=== PATIENT | male | born 1965 | race Caucasian/White ===

== ENCOUNTER 2017-05-14 06:35 | Inpatient (IN) | payer OTHER ==
[~2017-05-14] VITALS: Ht 185.4 cm; Wt 104.0 kg
[2017-05-14] VITALS (9 sets, daily range): BP systolic 154–172; BP diastolic 85–94; PULSE 52–96; TEMP 36.6–37; O2SAT 93–98; Ht 185.4 cm; Wt 104.0 kg
[2017-05-14] MEDS ORDERED: ASPI81TA28 PO (06:52)
[2017-05-14] MEDS ORDERED: MULT-506 PO (06:52)
[2017-05-14] MEDS ORDERED: RANITIDINE HCL 150 MG TAB PO ONE (07:00)
[2017-05-14] MEDS ORDERED: VGR50 PO (07:03)
--- NOTE | 2017-05-14 07:03 | EMERGENCY ROOM VISIT NOTE ---
History Report prepared by Liseth: Ambreen Bingham Under the Supervision of: Dr. Tomer Jensen M.D. First contact with patient: 06:49 Chief Complaint: CHEST PAIN Stated Complaint: CHEST PAIN Nursing Triage Summary: Pt reports chest pain that has been intermittent for the past few days. Pt reports it is worse after he eats. Pt reports the pain does not radiate. Denies nausea, vomiting, SOB. Pt states, "It's a lot of pressure on my stomach." History of Present Illness The patient is a 52 year old male who presents to the Emergency Room with complaints of intermittent chest pains for the past two days. He describes his pain as a pressure in the center of his chest. He states that his pain occurs after eating. He notes more gas than usual and increased burping especially after eating. His pain resolves after burping. Drinking soda also helps to alleviate his pain. He denies any current pain. He states that he did not eat breakfast in order to alleviate his symptoms. The patient denies any leg pain. He denies any significant cardiac history. He denies any history of HTN or DM. The patient smokes about a half a pack a day. Source of History: patient Onset: 2 days ago Position: chest Quality: pressure Timing: intermittent Modifying Factors (Worsening): eating Modifying Factors (Relieving): drinking (soda), other (burping) Review of Systems All systems have been listed, reviewed, and are negative other than those previously mentioned. Please see Additional Medical History Sheet. Past Medical & Surgical Medical Problems: (1) Chest pain (2) Elevated troponin I level (3) Laceration Family History Diabetes mellitus Hypertension Social History Smoking Status: Current Every Day Smoker Alcohol Use: occasionally Marital Status: Housing Status: lives with significant other Occupation Status: employed Current/Historical Medications Scheduled Aspirin (Aspirin Ec), 81 MG PO DAILY Multivitamin (Multivitamin), 1 TAB PO DAILY Scheduled PRN Sildenafil Citrate (Viagra), Unknown Dose PO PRN PRN for PRN Allergies Coded Allergies: No Known Allergies (Unverified , 05/14/17) Physical Exam Vital Signs Date Time Temp Pulse Resp B/P (MAP) Pulse Ox O2 Delivery O2 Flow Rate FiO2 05/14/17 08:30 54 16 158/108 05/14/17 07:31 63 16 151/104 05/14/17 07:11 51 20 155/99 96 Room Air 05/14/17 06:53 53 05/14/17 06:46 98 Room Air 05/14/17 06:46 Room Air 05/14/17 06:40 36.6 51 18 164/106 98 Room Air Physical Exam GENERAL: Patient awake, alert, oriented x 3. Patient follows commands. Patient does not appear toxic. Patient is adequately hydrated and well- nourished. SKIN: No erythema, pallor, cyanosis or rash HEENT: Normal head, pupils equal, reactive to light and accommodation, partially opaque left cornea. Oral cavity and posterior pharynx appear normal. Neck: Without adenopathy, no neck vein distention. LUNGS: Clear to auscultation. No wheezes, no rales, no rhonchi. HEART: No murmurs. No gallops. No rubs ABDOMEN: No masses, no rebound, no hepatomegaly or splenomegaly. EXTREMITIES: No signs of trauma. No pedal or pretibial edema. No calf or thigh tenderness. NEUROLOGIC: Cranial nerves II-XII within normal limits. No gross motor sensory function deficits. Medical Decision & Procedures ER Provider Diagnostic Interpretation: Radiology results as stated below per my review and radiologist interpretation: CHEST 2 VIEWS ROUTINE HISTORY: Atypical CHEST PAIN COMPARISON: None. FINDINGS: The lungs are clear. Cardiac silhouette is normal in size. No pleural effusions. No pneumothorax. IMPRESSION: No acute process. Electronically signed by: Chao Mary M.D. 05/14/2017 7:30 AM Dictated Date/Time: 05/14/2017 7:30 AM Laboratory Results 05/14/17 07:00 05/14/17 07:00 Test 05/14/17 07:00 Red Blood Count 4.69 M/uL (4.7-6.1) Mean Corpuscular Volume 99.8 fL (80-100) Mean Corpuscular Hemoglobin 35.4 pg (25-34) Mean Corpuscular Hemoglobin Concent 35.5 g/dl (32-36) RDW Standard Deviation 43.1 fL (36.4-46.3) RDW Coefficient of Variation 11.9 % (11.5-14.5) Mean Platelet Volume 9.0 fL (7.4-10.4) Prothrombin Time 10.0 SECONDS (9.0-12.0) Prothromb Time International Ratio 0.9 (0.9-1.1) Activated Partial Thromboplast Time 26.8 SECONDS (21.0-31.0) Partial Thromboplastin Ratio 1.0 Anion Gap 7.0 mmol/L (3-11) Est Creatinine Clear Calc Drug Dose 126.5 ml/min Estimated GFR () 114.7 Estimated GFR (Non- 99.0 BUN/Creatinine Ratio 17.8 (10-20) Calcium Level 9.3 mg/dl (8.5-10.1) Total Bilirubin 0.6 mg/dl (0.2-1) Aspartate Amino Transf (AST/SGOT) 38 U/L (15-37) Alanine Aminotransferase (ALT/SGPT) 42 U/L (12-78) Alkaline Phosphatase 108 U/L (45-117) Total Protein 6.9 gm/dl (6.4-8.2) Albumin 3.8 gm/dl (3.4-5.0) Globulin 3.1 gm/dl (2.5-4.0) Albumin/Globulin Ratio 1.2 (0.9-2) Lipase 191 U/L (73-393) Laboratory results as stated above per my review. Medications Administered Medications (Trade) Dose Ordered Sig/Aristides Route Start Time Stop Time Status Last Admin Dose Admin Ranitidine HCl (zANTac TAB) 150 mg NOW ONCE PO 05/14/17 07:00 05/14/17 07:01 DC 05/14/17 07:04 150 MG Aspirin (Aspirin Chew) 324 mg NOW STAT PO 05/14/17 07:41 05/14/17 07:43 DC 05/14/17 07:51 324 MG Nitroglycerin (Nitroglycerin 2% Oint) 2 inch STK-MED ONCE .ROUTE 05/14/17 08:35 05/14/17 11:26 DC 05/14/17 08:35 2 INCH ECG Indication: chest pain Rate (beats per minute): 52 Rhythm: sinus bradycardia Findings: ST depression (leads 1 and AVL), ST elevation (in leads 2, 3, AVF, V3 , V4, V5) Comparison ECG Date: no prior available ED Course 0649: Past medical records reviewed. The patient was evaluated in room A10. A complete history and physical examination was performed. 0700: Zantac Tab 150 mg PO 0741: Aspirin 324 mg PO 0810: I reassessed the patient at this time. He is resting comfortably. I discussed the results and treatment plan with the patient and his . I answered all pertaining questions that they had. They expressed understanding and verbalized agreement. 0827: I discussed the patient's case with Dr. Fan of [facility] cardiology. He suggested given the patient Heparin and a nitro patch. He will evaluate the patient in the hospital. 0828: Heparin Sodium/Dextrose 0830: Labetalol HCl 300 mg/Dextrose 300 mls/hr IV, Nitroglycerin 2 inch EXT 0837: I spoke with Dr. Browne. We discussed the patients case. The patient will be [facility] by [facility] for further management. 0843: I spoke with Dr. Fan of cardiology again at this time. The patient will likely go to the cardiac catheterization lab at some point today. 0844: I updated the patient and his and they are in agreement with the treatment plan. Medical Decision I considered multiple diagnoses including myocardial infarction, chest wall pain, pericarditis, myocarditis, aortic emergencies, pulmonary embolism, congestive heart failure, GI causes, and other significant cardiopulmonary disorders. Multiple labs, EKG and imaging were obtained. Please see above. The patient's troponin is elevated. The patient does have slight ST elevations in leads 2,3 aVF and his precordial leads I discussed care with cardiology who also only felt the patient should go to the [facility]. Prior to that the patient was given aspirin. He been given ranitidine with no change. The patient was heparinized here in the ED. In light of the above findings I believe the patient is having an acute inferior wall infarction. Medication Reconcilliation Current Medication List: was personally reviewed by me Blood Pressure Screening Patient's blood pressure: Elevated blood pressure Blood pressure disposition: Referred to PCP Consults Time Called: 08 Consulting Physician: Dr. Fan Returned Call: 08 I discussed the patient's case with Dr. Fan of [facility] cardiology. He suggested given the patient Heparin and a nitro patch. He will evaluate the patient in the hospital. Additional Consults: Time Called: 08 Consulted Physician: Dr. Browne Returned Call: 08 Additional Comments: I spoke with Dr. Browne. We discussed the patients case. The patient will be evaluated by [facility] for further management. Time Called: 0841 Consulted Physician: Dr. Fan Returned Call: 0843 Additional Comments: I spoke with Dr. Fan of cardiology again at this time. The patient will likely go to the cardiac catheterization lab at some point today. Impression Primary Impression: Acute IL, inferior wall Critical Care I have personally spent greater than 35 minutes of critical care time in the direct management of this patient. This includes bedside care, interpretation of diagnostic studies, and testing, discussion with consultants, patient, and family members, and other required patient management activities. This 35 minutes is in excess of all separately billable procedures. Scribe Attestation The scribe's documentation has been prepared under my direction and personally reviewed by me in its entirety. I confirm that the note above accurately reflects all work, treatment, procedures, and medical decision making performed by me. Departure Information Dispostion Being Evaluated By Hospitalist Referrals No Doctor, Assigned (PCP) Patient Instructions My [facility]
[2017-05-14 07:14] LABS: HEMATOCRIT 46.8 % (42-52); MEAN CELL VOLUME 99.8 fL (80-100); MEAN CORPUSCULAR HEMOGLOBIN 35.4 pg (25-34); MEAN CORPUSCULAR HGB CONC 35.5 g/dl (32-36); PLATELET COUNT 261 K/uL (130-400); RED BLOOD COUNT 4.69 M/uL (4.7-6.1); WHITE BLOOD COUNT 7.59 K/uL (4.8-10.8)
--- NOTE | 2017-05-14 07:31 | DIAGNOSTIC IMAGING REPORT ---
CHEST 2 VIEWS ROUTINE HISTORY: Atypical CHEST PAIN COMPARISON: None. FINDINGS: The lungs are clear. Cardiac silhouette is normal in size. No pleural effusions. No pneumothorax. IMPRESSION: No acute process. Electronically signed by: Chao Mary M.D. 05/14/2017 7:30 AM Dictated Date/Time: 05/14/2017 7:30 AM
[2017-05-14 07:33] LABS: BUN/CREATININE RATIO 17.8 (10-20); CALCIUM 9.3 mg/dl (8.5-10.1); CREATININE 0.86 mg/dl (0.60-1.40)
[2017-05-14 07:41] LABS: ALB/GLOB RATIO 1.2 (0.9-2)
[2017-05-14] MEDS ORDERED: ASPIRIN 81 MG CHEW PO STA (07:41)
[2017-05-14] MEDS ORDERED: DEXTROSE 5% IV PRN (08:30)
[2017-05-14] MEDS ORDERED: NITROGLYCERIN OINT 2% 1GM PACKET EXT SCH (08:30)
[2017-05-14] MEDS ORDERED: LABETALOL HCL IV PRN (08:30)
[2017-05-14] MEDS ORDERED: NITROGLYCERIN OINT 2% 1GM PACKET ONE (08:35)
[2017-05-14 08:57] LABS: INR 0.9 (0.9-1.1)
[2017-05-14] MEDS ORDERED: NITROGLYCERIN 0.4 MG SL PER TAB CHARGE SL PRN ×2 (09:00→11:30)
[2017-05-14] MEDS ORDERED: POLYETHYLENE (MIRALAX) 17 GM PACK PO PRN (09:00)
[2017-05-14] MEDS ORDERED: MAGNESIUM HYDROXIDE SUSP 30 ML UDC PO PRN (09:00)
[2017-05-14] MEDS ORDERED: ACETAMINOPHEN 325 MG TAB PO PRN ×2 (09:00→11:30)
[2017-05-14] MEDS ORDERED: ALUMINUM/MAGNESIUM/SIMETH (MAALOX MAX) 30 ML UDC PO PRN (09:00)
[2017-05-14] MEDS ORDERED: ASPIRIN 81 MG ECTAB PO SCH (09:00)
[2017-05-14] MEDS ORDERED: ONDANSETRON INJ 2 MG/ML 2 ML VIAL IV PRN ×2 (09:00→11:30)
[2017-05-14] MEDS ORDERED: SODIUM CHLORIDE 0.9% 1000ML 1,000 ML IV SCH ×2 (09:15→11:30)
[2017-05-14] MEDS ORDERED: HEPARIN SOD 5000 UNIT/0.5 ML CARP ONE (09:21)
[2017-05-14] MEDS ORDERED: HEPARIN 25000 UNIT/500 ML D5W ONE (09:21)
[2017-05-14] MEDS ORDERED: HEPARIN SOD (PORCINE) 1000 UNIT/ML 10 ML VIAL ONE (09:31)
[2017-05-14] MEDS ORDERED: NiCARDipine HCL INJ 2.5 MG/ML 10 ML AMP ONE (09:31)
[2017-05-14] MEDS ORDERED: MIDAZOLAM HCL 1 MG/ML 2ML VIAL ONE (09:32)
[2017-05-14] MEDS ORDERED: FENTANYL CITRATE INJ 50 MCG/1 ML 2 ML VIAL ONE (09:32)
[2017-05-14] MEDS ORDERED: NITROGLYCERIN/D5W 100MCG/ML 20ML SYR ONE (09:33)
--- NOTE | 2017-05-14 09:49 | History and Physical ---
History & Physical Date of Service May 14, 2017. History & Physical Full H&P to be done after cardiac cath: This is a 52 year old male who smokes 1/2PPD but no other medical history presents with epigastric/lower chest pain since May 11. Denies most other symptoms other than this. Presented to the ER due to worsening pain. Upon presentation - found to have some T wave changes on EKG, but no previous to compare it to. CXR was negative. Troponin elevation noted to ~ 2.0. Patient does have a family history, his dad had an HI in his 50s as well. Only takes a baby aspirin at home; no other medications. Noted to have elevated blood pressure on admission; but does not take anything for blood pressure. VITALS: Last Vital Signs Documentation Date Time Temp Pulse Resp B/P (MAP) Pulse Ox O2 Delivery O2 Flow Rate FiO2 05/14/17 09:28 58 16 150/92 97 Room Air 05/14/17 06:40 36.6 GEN: no acute distress HEENT: NC/AT CVS: RRR, +S1, S2 LUNGS: CTA b/l, no wheezing ABD: soft, NT/ND EXT: no edema NEURO: no focal deficits CHEST 2 VIEWS ROUTINE HISTORY: Atypical CHEST PAIN COMPARISON: None. FINDINGS: The lungs are clear. Cardiac silhouette is normal in size. No pleural effusions. No pneumothorax. IMPRESSION: No acute process. EKG Sinus bradycardia Abnormal QRS-T angle, consider primary T wave abnormality Abnormal ECG No previous ECGs available Chest Pain rule out ACS presented with intermittent chest pain/epigastric pain/belching Risk factors: family history of cardiovascular disease, tobacco use troponin elevation on admission to >2 EKG, some T wave abnormalities on inferior leads given full dose aspirin in the ER, IV heparin started appreciate cardiology input echo pending patient to the cardiac clinical lab clerk now observe in tele, trend enzymes fasting lipid panel in AM DVT ppx subq heparin FULL CODE
[2017-05-14] MEDS ORDERED: CLOPIDOGREL BISULFATE 300 MG TAB PO ONE (11:20)
--- NOTE | 2017-05-14 11:26 | Procedure Note ---
Pre-Mod Sedation Assessment General Date of Moderate Sedation: May 14, 2017. Vital Signs: Vital Signs Past 12 Hours Date Time Temp Pulse Resp B/P (MAP) Pulse Ox O2 Delivery O2 Flow Rate FiO2 05/14/17 11:15 Room Air 05/14/17 11:11 51 16 146/87 (106) 100 Room Air 05/14/17 09:28 58 16 150/92 97 Room Air 05/14/17 09:09 96 Room Air 05/14/17 08:30 54 16 158/108 05/14/17 07:31 63 16 151/104 05/14/17 07:11 51 20 155/99 96 Room Air 05/14/17 06:53 53 05/14/17 06:46 98 Room Air 05/14/17 06:46 Room Air 05/14/17 06:40 36.6 51 18 164/106 98 Room Air Review Cardiovascular: regular rate, rhythm, no edema Abdomen: normal bowel sounds, non tender Lungs: chest non-tender, lungs clear Airway Class: II Pre-Sedation Airway Assessment Oral Cavity: WNL Able to Visualize Vocal Cords: No Short Thick Neck: No Hx of Sleep Apnea: No Smoking Status: Current Every Day Smoker Mallampati Classification: Class III ASA Classification: Class III Procedure Planning Contraindications-for Mod Sed: None Yes Notes The planned sedation has been discussed with the patient and consent obtained. I have identified the patient, determined the appropriateness of sedation and have assessed the patient immediately prior to the procedure. All medicine(s) and interventions are by my order.
--- NOTE | 2017-05-14 11:28 | Procedure Note ---
Post-Mod Sedation Assessment General Date of Moderate Sedation May 14, 2017. Vital Signs: Vital Signs Past 12 Hours Date Time Temp Pulse Resp B/P (MAP) Pulse Ox O2 Delivery O2 Flow Rate FiO2 05/14/17 11:15 Room Air 05/14/17 11:11 51 16 146/87 (106) 100 Room Air 05/14/17 09:28 58 16 150/92 97 Room Air 05/14/17 09:09 96 Room Air 05/14/17 08:30 54 16 158/108 05/14/17 07:31 63 16 151/104 05/14/17 07:11 51 20 155/99 96 Room Air 05/14/17 06:53 53 05/14/17 06:46 98 Room Air 05/14/17 06:46 Room Air 05/14/17 06:40 36.6 51 18 164/106 98 Room Air Review - Discharge Criteria Vital Signs Stable: Yes Alert/Oriented/Conversant: Yes Returned to Baseline Mental St: Yes Nausea Absent/Minimal: Yes Pain/Discomfort/Absent/Minimal: Yes Normal/Baseline Respirations: Yes Active Bleeding?: No Pt Received D/C Instructions: N/A Prescriptions Given: None Specific Proced. D/C Criteria Distal Pulses Present (Cardiac: Yes Groin site assessed-Card Cath: N/A Voided Prior To Discharge: N/A Discharged Patients Adult Escort/Transportation: Yes
--- NOTE | 2017-05-14 11:42 | CARDIOLOGY CONSULTATION ---
DATE OF CONSULTATION: 05/14/2017 CONSULTATION REQUESTED BY: Dr. Jensen. REASON FOR CONSULTATION: Possible non-ST segment elevation CA. HISTORY OF PRESENT ILLNESS: Mr. Ramirez is a very pleasant 52-year-old gentleman who presented to [facility] Emergency Department early in the a.m. of 05/14/2017 with a complaint of indigestion. The patient states that for the last 3 days, he has been having significant issues with abdominal discomfort and bloating. He states that this started approximately 3 days ago after eating dinner. Approximately an hour or so later, he developed a significant pressure in his mid epigastric area and into the lower part of his left precordium. He states that he just felt as though he needed to belch. He denied any associated symptoms with it. Specifically, denied any associated diaphoresis, shortness of breath, nausea, palpitations, lightheadedness, dizziness or syncope. The symptoms persisted for the next 3 days and again following the same pattern occurring about an hour after eating, no complaints with exertion. Finally, early in the a.m. of 05/14/2017, again the symptoms occurred, in this time much more severe. He ranked it as a 5/10 and his brought him into the Emergency Department. Initial EKG showed some nonspecific lateral ST-T wave abnormalities with possible nonsignificant inferior ST segment elevations. Initial troponin came back at 1.9. I was contacted by Dr. Jensen. The patient was instructed be started on heparin and nitro paste mainly for blood pressure. I evaluated him at the bedside. An echocardiogram was performed, which was rather unremarkable; however, at that time we decide and take him to the cardiac catheterization lab for further evaluation. PAST SURGICAL HISTORY: Multiple eye surgeries. MEDICAL ILLNESSES: 1. Hypertension, not treated medically. 2. Tobacco abuse. 3. Elevated BMI. 4. Dyslipidemia. FAMILY HISTORY: Remarkable for a father, who suffered a fatal myocardial infarction at age 59. SOCIAL HISTORY: The patient is a lifelong smoker, been smoking since he is 11 years old and states he smokes about half pack a day. Drinks occasional alcohol. Denies any recreational drug use. He is . He has 1 biological child, who is in good health. 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 He does not exercise outside of work. REVIEW OF SYSTEMS: As per HPI. All other review of systems reviewed and negative at this time. ALLERGIES: No known drug allergies. MEDICATIONS AN OUTPATIENT: 1. Aspirin 81 mg daily. 2. Sildenafil p.r.n. PHYSICAL EXAMINATION: VITALS: Temperature 36.6, pulse 58, respiratory rate 12, and blood pressure 150/92. GENERAL: Awake, alert, and oriented x3, in no acute distress. HEENT: Normocephalic and atraumatic. Pupils equal, round, and reactive to light and accommodation. Extraocular muscles intact. Anicteric sclerae. Moist mucous membranes. NECK: No JVD and no bruit. CARDIOVASCULAR: Regular. Positive S4. Normal S1 and S2. No S3. No murmurs or rubs. PULMONARY: Clear to auscultation bilaterally. No rales, rhonchi, or wheezing. ABDOMEN: Bowel sounds x4. Soft. No rebound, guarding, or tenderness. No organomegaly. EXTREMITIES: No clubbing, cyanosis or edema. +2 pedal pulses bilaterally. SKIN: Warm and dry. TEST RESULTS: A 12-lead EKG performed in the Emergency Department independently reviewed shows sinus bradycardia at 52 beats per minute, slight less than 1-mm ST segment elevations in the inferior leads and inverted T waves in the lateral leads. No previous studies available for comparison. Troponin 1.85. Sodium 140, potassium 4, BUN 15, and creatinine 0.9. IMPRESSION: 1. Possible non-ST segment elevation myocardial infarction. 2. Tobacco abuse. 3. Hypertension. 4. Dyslipidemia. RECOMMENDATIONS: It was my pleasure to see Mr. Ramirez in consultation today. Given the patient's constellation of his risk factors for heart disease, his stuttering symptoms, his abnormal EKG and elevated troponin level, I do believe that he would benefit from direct visualization of his coronary anatomy. So, the patient will be taken to the cardiac catheterization lab by Dr. Leavitt and further recommendations to follow. In the meantime, he will be started on IV fluids. He has already received aspirin and again nitro paste is in place.
--- NOTE | 2017-05-14 11:55 | Cardiac Catheterization ---
Procedure Note Procedure Date May 14, 2017. 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 LAD - Moderate caliber, angulated and aneurysmal proximally with diffuse 30% disease from late-proximal to mid segment; aneurysmal mid segment at take-off small 2nd diagonal; distal luminal irregularities as wraps around apex. Circumflex - Large caliber vessel which gives off a large OM2. OM2 mildly ectatic with diffuse 30% disease; Small distal circumflex with luminal irregularities. RCA - Large, dominant vessel, ectatic proximal segment with 99% focal early-mid segment disease with apparent thrombus; downstream from stenosis mid segment is aneurysmal; distal RCA, PDA with luminal irregularities and BHARATHI 2 flow pre- intervention. LVEDP - 13 -- PCI -- Antithrombotic therapy: Heparin, Clopidogrel Procedure: RCA cannulated with JR4 guide BMW wire passed across lesion into distal vessel Early-mid RCA lesion predilated with 2.5 compliant balloon Dilated lesion stented with 4.0 x 18 Xience RACHEL Stent post-dilated with 4.5 noncompliant balloon IC vasodilators administered for spasm Post procedure BHARATHI 3 flow, stent well expanded with minimal residual stenosis and no apparent cardiac complications. Arterial Closure: TR Band Summary: 1. Severe single vessel coronary artery disease - 99% early-mid RCA stenosis with acute thrombus and pre-intervention BHARATHI 2 flow - Proximal to mid LAD and RCA and mid OM2 are ectatic with focal aneurysmal disease. 2. Normal intracardiac filling pressure 3. Successful PCI of mid RCA with single drug-eluting stent (4.0 x 18 Xience RACHEL , post-dilated to 4.5 mm). Recommendations: To PCU for continued monitoring Loaded with Clopidogrel 600 mg Continue dual-antiplatelet therapy with ASA/Clopidogrel for 1 year Continue statin, ASCVD risk factor modification including smoking cessation per Dr. Fan Consult cardiac Rehab Hemodynamics Rest Ao: 130/75/97 Final Ao: 145/73/101 LV: 142/13 Recommendations PCI without planned CABG Specimens None Radiation Exposure (mGy) 3041 Contrast (mls) 125 Visi Fluids (cc crystalloids) 175 Drains None Anesthesia Moderate (10:12 - 11:11) Procedural Complication(s) None Disposition PCU ACC Data Cardiac Status Clinical evaluation leading to the procedure CAD Presntation: Non STEMI Anginal Classification: CCS IV Heart Failure: No, NYHA Class: CCS I Cardiogenic Shock w/in 24Hrs: No Cardiac Arrest w/in 24Hrs: No Imaging studies past 6 months: Yes Stress studies past 6 months: No Coronary Anatomy Dominant: Right Left Main (% Stenosis): Normal LAD (% Stenosis): Proximal (30) OM2 (% Stenosis): Mid (30) RCA (% Stenosis): Mid (99%) Diagnostic Physician's Name: Rob Leavitt MD Status: Urgent Closure Device Percutaneous Entry Location: Radial Closure Device: Radial Band Recommendations: PCI without planned CABG PCI Indication: PCI for high risk Non-STEMI Lesion Segment Name: Mid RCA Culprit Artery: Yes Stenosis Prior to Rx (%): 99 Chronic Total Occlusion: No IVUS: No FFR: No Pre-Procedure BHARATHI Flow: 2 Previously Treated Lesion: No Lesion Complexity: Non-High/Non-C Lesion Length (mm): 12 Thrombus Present: Yes Bifurcation Lesion: No Guidewire Across Lesion: Yes Guidewire: Stenosis Post-Procedure (%): 0 Post-Procedure BHARATHI Flow: 3 Device(s) Deployed: Yes Intraprocedure Events Significant Dissection: No Perforation: No
[2017-05-14] MEDS ORDERED: IV FLUIDS COMPLETED PRN (12:30)
[2017-05-14] MEDS: HEPARIN SOD 5000 UNIT/0.5 ML CARP SQ SCH ×2 (14:00→20:52)
--- NOTE | 2017-05-14 14:17 | History and Physical ---
History & Physical Date & Time of Service: May 14, 2017 at 14:03 Chief Complaint: Chest Pain,Elevated Troponin I Level Primary Care Physician: No Doctor, Assigned History of Present Illness Source: patient, spouse This is a 52 year old male who smokes 1/2PPD but no other medical history presents with epigastric/lower chest pain since May 11. He states that he's had belching and burping episodes with this epigastric pain for weeks now; but the pain was worse starting over the weekend - states that after belching he felt slightly better, but then the pain worsened on the day of arrival and that was the reason to come to the ER. Presented to the ER due to worsening pain. Upon presentation - found to have some T wave changes on EKG, but no previous to compare it to. CXR was negative. Troponin elevation noted to ~ 2.0. Patient does have a family history, his dad had an IN in his 50s as well. Only takes a baby aspirin at home; no other medications. Noted to have elevated blood pressure on admission; but does not take anything for blood pressure. Past Medical/Surgical History Medical Problems: (1) Laceration Status: Resolved Family History Diabetes mellitus Hypertension Social History Smoking Status: Current Every Day Smoker Marital Status: Occupational Status: employed Allergies Coded Allergies: No Known Allergies (Unverified , 05/14/17) Home Medications Scheduled Aspirin (Aspirin Ec), 81 MG PO DAILY Multivitamin (Multivitamin), 1 TAB PO DAILY Scheduled PRN Sildenafil Citrate (Viagra), Unknown Dose PO PRN PRN for PRN Review of Systems Constitutional: No fever, No chills, No weakness Eyes: No worsening of vision Respiratory: No cough, No sputum, No wheezing, No shortness of breath, No dyspnea on exertion, No dyspnea at rest, No hemoptysis Cardiovascular: + chest pain, No orthopnea, No edema, No palpitations Abdomen: + pain, No nausea, No vomiting, No diarrhea, No constipation, No GI bleeding Musculoskeletal: No joint pain, No muscle pain Genitourinary - Male: No hematuria, No dysuria, No urinary frequency, No urinary urgency Psychiatric: No depression symptoms Hematologic / Lymphatic: No abnormal bleeding/bruising Integumentary: No rash Allergic / Immunologic: No environmental allergies, No seasonal allergies Physical Exam Vital Signs Date Time Temp Pulse Resp B/P (MAP) Pulse Ox O2 Delivery O2 Flow Rate FiO2 05/14/17 13:00 37.0 53 16 170/85 (113) 97 Room Air 05/14/17 12:30 36.9 52 16 170/91 (117) 93 Room Air 05/14/17 12:15 48 16 146/80 (102) 98 Room Air 05/14/17 12:00 45 16 142/82 (102) 98 Room Air 05/14/17 11:45 57 16 146/83 (104) 98 Room Air 05/14/17 11:30 48 16 136/72 (93) 98 Room Air 05/14/17 11:25 50 16 148/87 (107) 98 Room Air 05/14/17 11:15 Room Air 05/14/17 11:11 51 16 146/87 (106) 100 Room Air 05/14/17 09:28 58 16 150/92 97 Room Air 05/14/17 09:09 96 Room Air 05/14/17 08:30 54 16 158/108 05/14/17 07:31 63 16 151/104 05/14/17 07:11 51 20 155/99 96 Room Air 05/14/17 06:53 53 05/14/17 06:46 98 Room Air 05/14/17 06:46 Room Air 05/14/17 06:40 36.6 51 18 164/106 98 Room Air General Appearance: no apparent distress Head: normocephalic, atraumatic Eyes: normal inspection ENT: hearing grossly normal Neck: supple Respiratory/Chest: chest non-tender, lungs clear, normal breath sounds, no respiratory distress, no accessory muscle use Cardiovascular: regular rate, rhythm, no edema, no gallop, no JVD, no murmur, normal peripheral pulses Abdomen/GI: normal bowel sounds, non tender, soft Extremities/Musculoskelatal: normal capillary refill, no pedal edema 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, no motor/sensory deficits, alert, normal mood/affect, normal reflexes, oriented x 3 Skin: normal color, warm/dry, no rash Lymphatic: no adenopathy Diagnostics Laboratory Results Results Past 24 Hours Test 05/14/17 07:00 05/14/17 10:32 05/14/17 10:49 Range/Units White Blood Count 7.59 4.8-10.8 K/uL Red Blood Count 4.69 4.7-6.1 M/uL Hemoglobin 16.6 14.0-18.0 g/dL Hematocrit 46.8 42-52 % Mean Corpuscular Volume 99.8 80-100 fL Mean Corpuscular Hemoglobin 35.4 25-34 pg Mean Corpuscular Hemoglobin Concent 35.5 32-36 g/dl RDW Standard Deviation 43.1 36.4-46.3 fL RDW Coefficient of Variation 11.9 11.5-14.5 % Platelet Count 261 130-400 K/uL Mean Platelet Volume 9.0 7.4-10.4 fL Prothrombin Time 10.0 9.0-12.0 SECONDS Prothromb Time International Ratio 0.9 0.9-1.1 Activated Partial Thromboplast Time 26.8 21.0-31.0 SECONDS Partial Thromboplastin Ratio 1.0 Sodium Level 140 136-145 mmol/L Potassium Level 4.0 3.5-5.1 mmol/L Chloride Level 106 98-107 mmol/L Carbon Dioxide Level 27 21-32 mmol/L Anion Gap 7.0 3-11 mmol/L Blood Urea Nitrogen 15 7-18 mg/dl Creatinine 0.86 0.60-1.40 mg/dl Est Creatinine Clear Calc Drug Dose 126.5 ml/min Estimated GFR () 114.7 Estimated GFR (Non- 99.0 BUN/Creatinine Ratio 17.8 10-20 Random Glucose 99 70-99 mg/dl Calcium Level 9.3 8.5-10.1 mg/dl Total Bilirubin 0.6 0.2-1 mg/dl Aspartate Amino Transf (AST/SGOT) 38 15-37 U/L Alanine Aminotransferase (ALT/SGPT) 42 12-78 U/L Alkaline Phosphatase 108 45-117 U/L Total Creatine Kinase 201 39-308 U/L Troponin I 1.850 0-0.045 ng/ml Total Protein 6.9 6.4-8.2 gm/dl Albumin 3.8 3.4-5.0 gm/dl Globulin 3.1 2.5-4.0 gm/dl Albumin/Globulin Ratio 1.2 0.9-2 Lipase 191 73-393 U/L Kaolin Activated Coagulation Time 169 241 94-140 SECONDS Diagnostic Radiology CHEST 2 VIEWS ROUTINE HISTORY: Atypical CHEST PAIN COMPARISON: None. FINDINGS: The lungs are clear. Cardiac silhouette is normal in size. No pleural effusions. No pneumothorax. IMPRESSION: No acute process. EKG Sinus bradycardia T wave abnormality, consider anterolateral ischemia Abnormal ECG When compared with ECG of 14-MAY-2017 06:48, (unconfirmed) T wave inversion more evident in Anterior leads Impression Assessment and Plan This is a 52 year old male with a PMH of tobacco use disorder presents with chest pain, elevated troponin - found to have severe CAD NSTEMI Severe CAD EKG showed mild T wave changes troponin elevated to ~ 2 s/p cardiac cath found to have a 99% RCA occlusion s/p RACHEL started on aspirin, Plavix, high intensity statin no b-aziza due to sinus bradycardia possibly may need to start an ALEXIS-I Tobacco Use Disorder counseled patient on smoking cessation refusing nicotine patch at this time DVT ppx subq heparin FULL CODE Advanced Directives Existing Living Will: No 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 Y/N: Yes Risk Level: Moderate
--- NOTE | 2017-05-14 14:55 | ECHOCARDIOGRAM REPORT ---
*NOTICE TO RECEIVING LIBERTARIAN AGENCY This information is strictly Confidential and protected under [place] law. [place] law prohibits you from making any further disclosure of this information unless further disclosure is expressly permitted by the written consent of the person to whom it pertains or is authorized by law. A general authorization for the release of medical or other information is not sufficient for this purpose. Hospital accepts no responsibility if the information is made available to any other person, INCLUDING THE PATIENT. Interpretation Summary * Name: JASMIN VLEAZCO Study Date: 05/14/2017 08:58 AM BP: 150/92 mmHg * Patient Location: [facility] HR: 58 * : 1965 (M/d/yyyy) Gender: Male Height: 72 in * Age: 52 yrs Ethnicity: [place] Weight: 240 lb * Ordering Physician: Praneeth Fan * Referring Physician: Self, Referred * Performed By: Gayatri Ramirez RDCS * * Reason For Study: CHEST PAIN * BSA: 2.3 m2 * -- Conclusions -- * Normal LV chamber size with moderate concentric LVH. * Normal LV systolic function, EF 60-65%. * No segmental left ventricular wall motion abnormalities are noted. * Grade I diastolic dysfunction. * No significant valvular pathology. Procedure Details * A contrast injection of Definity was performed to improve assessment of LV function. * Contrast was injected into an intravenous site in the left arm. * One vial of Definity ultrasound contrast was diluted in normal saline to a total volume of 10 ml. A total of '1' ml of solution was administered during imaging. * Lot # [id number] of Definity utilized for procedure. * Expiration date MAY 31. * The attending nurse who injected the contrast agent was MARIA LUISA ANDERSON. Left Ventricle * The left ventricle is normal in size. * There is moderate concentric left ventricular hypertrophy. * Ejection Fraction = 60-65%. * Left ventricular systolic function is normal. * No segmental left ventricular wall motion abnormalities are noted. * The left ventricular wall motion is normal. Right Ventricle * The right ventricular cavity size is normal (basal dimension <4.2 cm in right ventricular apical 4-chamber view). * The right ventricular systolic function is normal as assessed by tricuspid annular plane systolic excursion (TAPSE) (normal >1.5 cm). Atria * The left atrial size is normal. * Right atrial size is normal. * No ASD detected; PFO is not assessed. Mitral Valve * The mitral valve is normal in structure and function. Tricuspid Valve * The tricuspid valve is normal in structure and function. Aortic Valve * The aortic valve is normal in structure and function. Pulmonic Valve * The pulmonary valve is not well seen, but the Doppler examination is normal without significant regurgitation or stenosis. Great Vessels * Borderline aortic root dilatation. Pericardium/Pleural * There is no pericardial effusion. Left Ventricular Diastolic Function * Grade I diastolic dysfunction, (abnormal relaxation pattern). MMode 2D Measurements and Calculations IVSd 1.8 cm IVSs 2.1 cm LVIDd 4.4 cm LVIDs 3.1 cm LVPWd 1.8 cm LVPWs 2.6 cm IVS/LVPW 1.0 FS 30.0 % EDV(Teich) 90.0 ml ESV(Teich) 38.4 ml EF(Teich) 57.4 % EDV(cubed) 88.1 ml ESV(cubed) 30.2 ml EF(cubed) 65.7 % % IVS thick 16.2 % % LVPW thick 43.5 % LV mass(C)d 367.2 grams LV mass(C)dI 159.6 grams/m\S\2 LV mass(C)s 375.7 grams LV mass(C)sI 163.3 grams/m\S\2 SV(Teich) 51.6 ml SI(Teich) 22.4 ml/m\S\2 SV(cubed) 57.8 ml SI(cubed) 25.1 ml/m\S\2 Ao root diam 4.0 cm Ao root area 12.3 cm\S\2 LA dimension 3.7 cm LA/Ao 0.93 LVAd ap4 38.1 cm\S\2 LVLd ap4 9.2 cm EDV(MOD-sp4) 130.6 ml EDV(sp4-el) 134.3 ml LVAs ap4 22.6 cm\S\2 LVLs ap4 7.9 cm ESV(MOD-sp4) 56.1 ml ESV(sp4-el) 55.2 ml EF(MOD-sp4) 57.0 % EF(sp4-el) 58.9 % LVAd ap2 37.8 cm\S\2 LVLd ap2 8.7 cm EDV(MOD-sp2) 130.7 ml EDV(sp2-el) 139.1 ml LVAs ap2 21.0 cm\S\2 LVLs ap2 7.4 cm ESV(MOD-sp2) 51.7 ml ESV(sp2-el) 50.7 ml EF(MOD-sp2) 60.4 % EF(sp2-el) 63.6 % LVLd %diff -5.23 % EDV(MOD-bp) 132.7 ml LVLs %diff -6.55 % ESV(MOD-bp) 55.7 ml EF(MOD-bp) 58.0 % SV(MOD-sp4) 74.5 ml SI(MOD-sp4) 32.4 ml/m\S\2 SV(MOD-sp2) 79.0 ml SI(MOD-sp2) 34.3 ml/m\S\2 SV(MOD-bp) 77.0 ml SI(MOD-bp) 33.5 ml/m\S\2 SV(sp4-el) 79.1 ml SI(sp4-el) 34.4 ml/m\S\2 SV(sp2-el) 88.4 ml SI(sp2-el) 38.4 ml/m\S\2 Doppler Measurements and Calculations MV E max pasha 48.2 cm/sec MV A max pasha 56.6 cm/sec MV E/A 0.85 MV dec time 0.27 sec Ao V2 max 110.4 cm/sec Ao max PG 4.9 mmHg Ao max PG (full) 1.5 mmHg LV V1 max PG 3.4 mmHg LV V1 max 91.7 cm/sec TR max pasha 203.5 cm/sec
[2017-05-14] MEDS ORDERED: AMLODIPINE BESYLATE 5 MG TAB PO ONE (15:00)
[2017-05-14 15:46] LABS: CKMB/CK RATIO 6.1 (0-3.0)
[2017-05-15] VITALS (7 sets, daily range): BP systolic 122–163; BP diastolic 78–99; PULSE 56–67; TEMP 36.7–37; O2SAT 95–98
[2017-05-15] MEDS: HEPARIN SOD 5000 UNIT/0.5 ML CARP SQ SCH ×3 (06:00→21:10)
[2017-05-15 07:28] LABS: BASO % 0.3 %; BASO ABS # 0.02 K/uL (0-0.2); COMPLETE YES; EOS % 2.6 %; HEMATOCRIT 46.9 % (42-52); IG% 0.1 %; LYMPH % 22.9 %; LYMPH ABS # 1.59 K/uL (1.2-3.4); MEAN CELL VOLUME 100.2 fL (80-100); MEAN CORPUSCULAR HEMOGLOBIN 35.5 pg (25-34); MEAN CORPUSCULAR HGB CONC 35.4 g/dl (32-36); MEAN PLATELET VOLUME 8.9 fL (7.4-10.4); MONO % 10.1 %; PLATELET COUNT 254 K/uL (130-400); RED BLOOD COUNT 4.68 M/uL (4.7-6.1); WHITE BLOOD COUNT 6.95 K/uL (4.8-10.8)
[2017-05-15] MEDS: AMLODIPINE BESYLATE 5 MG TAB PO SCH (07:35)
[2017-05-15] MEDS: CLOPIDOGREL BISULFATE 75 MG TAB PO SCH (07:36)
[2017-05-15] MEDS: ASPIRIN 81 MG ECTAB PO SCH (07:36)
[2017-05-15] MEDS: NICOTINE 14 MG/24 HR TDSY TD SCH (07:36)
[2017-05-15] MEDS: ATORVASTATIN 40 MG TAB PO SCH (07:36)
[2017-05-15 07:38] LABS: PARTIAL THROMBOPLASTIN RATIO 1.1
[2017-05-15 08:04] LABS: BUN/CREATININE RATIO 15.8 (10-20); CALCIUM 9.4 mg/dl (8.5-10.1); CREATININE 0.76 mg/dl (0.60-1.40)
[2017-05-15 08:07] LABS: CHOLESTEROL/HDL RATIO 6.3
[2017-05-15] MEDS ORDERED: AMLODIPINE BESYLATE 5 MG TAB PO ONE (08:07)
--- NOTE | 2017-05-15 11:55 | Cardiology Follow-Up ---
Subjective Subjective Date of Service: May 15, 2017. Pt evaluation today including: conversation w/ patient, physical exam, chart review, lab review, review of studies, review of inpatient medication list Additional Details: Pt seen and examined, oob in chair. No complaints overnight. No recurrence of his presenting symptoms of "indigestion". BP has been high and uptitrating amlodipine, tolerating well. Denies cp, sob, palpitations, lightheadedness or dizziness. Tele reviewed: sinus rhythm without arrhythmia or significant ectopy. Problem List Medical Problems: (1) Acute [place], inferior wall Status: Acute (2) NSTEMI (non-ST elevated myocardial infarction) Status: Acute Review of Systems Respiratory: No see HPI, No cough, No sputum, No wheezing, No shortness of breath, No dyspnea on exertion, No dyspnea at rest, No hemoptysis, No problem reported Cardiac: No see HPI, No chest pain, No orthopnea, No PND, No edema, No claudication, No palpitations, No problem reported Objective Vital Signs Last Vital Signs Documentation Date Time Temp Pulse Resp B/P (MAP) Pulse Ox O2 Delivery O2 Flow Rate FiO2 05/15/17 11:15 Room Air 05/15/17 11:14 36.8 59 18 144/90 (108) 95 Physical Exam: General Appearance: WD/WN, no apparent distress Eyes: bilateral eyes normal inspection, bilateral eyes PERRL, bilateral eyes EOMI ENT: normal ENT inspection, hearing grossly normal, pharynx normal Neck: supple, no adenopathy, thyroid normal, no JVD, no carotid bruits, trachea midline Respiratory/Chest: chest non-tender, lungs clear, normal breath sounds, no respiratory distress, no accessory muscle use Cardiovascular: regular rate, rhythm, no edema, no JVD, no murmur, + gallop/S4 Abdomen: normal bowel sounds, non tender, soft, no organomegaly, no pulsatile mass Extremities: normal inspection, no pedal edema, no calf tenderness 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 NSTEMI 99% occluded proximal RCA s/p successful PCI with RACHEL tolerating asa and plavix well no recurrence of symptoms plavix for 1 year asa lifelong smoking cessation again stressed to the patient 2. HTN significantly elevated since admission amlodipine 10mg today with good improvement may also add jonelle-i for further BP control but no secondary indication given preserved LV systolic function and nondiabetic 3. dyslipidemia cont atorvastatin 4. tobacco abuse cessation counseling provided will also work with Dr. Browne on nicotine replacement cont to monitor on tele for 48 hours after event
--- NOTE | 2017-05-15 12:50 | Progress Note ---
Subjective Date of Service: May 15, 2017. Subjective Pt evaluation today including: conversation w/ patient, physical exam, lab review, review of studies, review of inpatient medication list Saw/examined the patient in room 242 Patient is doing fine after stent placement no shortness of breath/chest pain Problem List Medical Problems: (1) Acute [place], inferior wall Status: Acute (2) NSTEMI (non-ST elevated myocardial infarction) Status: Acute Review of Systems Constitutional: No fever, No chills Respiratory: No cough, No sputum, No shortness of breath Cardiac: No chest pain, No edema, No palpitations Abdomen: No pain, No nausea, No vomiting, No diarrhea Heme: No abnormal bleeding/bruising Medications Current Inpatient Medications Medications (Trade) Dose Ordered Sig/Aristides Route Start Time Stop Time Status Last Admin Dose Admin Heparin Sodium (Porcine) (Heparin Sq 5000 Unit/0.5ml) 5,000 unit Q8 SQ 05/14/17 14:00 06/13/17 13:59 05/14/17 20:52 5,000 UNIT Acetaminophen (Tylenol Tab) 650 mg Q4H PRN PO 05/14/17 09:00 06/13/17 08:59 Al Hydrox/Mg Hydrox/Simethicone (Maalox Max Susp) 15 ml Q4H PRN PO 05/14/17 09:00 06/13/17 08:59 Magnesium Hydroxide (Milk Of Magnesia Susp) 30 ml Q12H PRN PO 05/14/17 09:00 06/13/17 08:59 Ondansetron HCl (Zofran Inj) 4 mg Q6H PRN IV 05/14/17 09:00 06/13/17 08:59 Nitroglycerin (Nitrostat Tab) 0.4 mg UD PRN SL 05/14/17 09:00 06/13/17 08:59 Polyethylene (Miralax Powder Packet) 17 gm DAILY PRN PO 05/14/17 09:00 06/13/17 08:59 Aspirin (Ecotrin Tab) 81 mg QAM PO 05/15/17 09:00 06/14/17 08:59 05/15/17 07:36 81 MG Clopidogrel Bisulfate (plAVix TAB) 75 mg QAM PO 05/15/17 09:00 06/14/17 08:59 05/15/17 07:36 75 MG Atorvastatin Calcium (Lipitor Tab) 80 mg QAM PO 05/15/17 09:00 06/14/17 08:59 05/15/17 07:36 80 MG Miscellaneous (Iv Fluids Completed) 1 ea PRN PRN N/A 05/14/17 12:30 05/14/18 12:29 Amlodipine Besylate (Norvasc Tab) 5 mg QAM PO 05/15/17 09:00 06/14/17 08:59 05/15/17 07:35 5 MG Nicotine (Nicoderm Cq 14MG Patch) 1 patch QAM TD 05/15/17 09:00 06/14/17 08:59 05/15/17 07:36 1 PATCH Miscellaneous (Remove Nicoderm Patch) 1 ea HS N/A 05/15/17 21:00 06/14/17 20:59 Objective Vital Signs Date Time Temp Pulse Resp B/P (MAP) Pulse Ox O2 Delivery O2 Flow Rate FiO2 05/15/17 11:15 Room Air 05/15/17 11:14 36.8 59 18 144/90 (108) 95 Room Air 05/15/17 08:00 Room Air 05/15/17 07:28 36.7 59 18 163/99 (120) 98 Room Air 05/15/17 04:00 36.9 57 19 150/95 (113) 98 Room Air 05/15/17 04:00 Room Air 05/15/17 00:00 37.0 56 17 144/93 (110) 96 Room Air 05/14/17 23:59 Room Air 05/14/17 20:00 Room Air 05/14/17 19:27 36.7 96 20 154/92 (112) 96 Room Air 05/14/17 17:42 36.6 57 22 172/94 (120) 97 Room Air 05/14/17 16:00 Room Air 05/14/17 15:14 36.7 54 22 158/92 (114) 98 Room Air 05/14/17 14:00 37.0 54 16 168/92 (117) 98 Room Air 05/14/17 13:30 36.9 52 16 170/94 (119) 98 Room Air 05/14/17 13:00 37.0 53 16 170/85 (113) 97 Room Air Physical Exam General Appearance: no apparent distress Respiratory/Chest: chest non-tender, lungs clear, normal breath sounds, no respiratory distress, no accessory muscle use Cardiovascular: regular rate, rhythm, no edema, no murmur Abdomen: normal bowel sounds, non tender, soft Extremities: normal inspection, no pedal edema Neurologic/Psychiatric: no motor/sensory deficits, alert, normal mood/affect Laboratory Results Last 24 Hours Test 05/14/17 14:36 05/14/17 22:59 05/15/17 06:57 Total Creatine Kinase 196 U/L 216 U/L Creatine Kinase MB 11.9 ng/ml 15.1 ng/ml Creatine Kinase MB Ratio 6.1 7.0 Troponin I 2.320 ng/ml 3.940 ng/ml White Blood Count 6.95 K/uL Red Blood Count 4.68 M/uL Hemoglobin 16.6 g/dL Hematocrit 46.9 % Mean Corpuscular Volume 100.2 fL Mean Corpuscular Hemoglobin 35.5 pg Mean Corpuscular Hemoglobin Concent 35.4 g/dl Platelet Count 254 K/uL Mean Platelet Volume 8.9 fL Neutrophils (%) (Auto) 64.0 % Lymphocytes (%) (Auto) 22.9 % Monocytes (%) (Auto) 10.1 % Eosinophils (%) (Auto) 2.6 % Basophils (%) (Auto) 0.3 % Neutrophils # (Auto) 4.45 K/uL Lymphocytes # (Auto) 1.59 K/uL Monocytes # (Auto) 0.70 K/uL Eosinophils # (Auto) 0.18 K/uL Basophils # (Auto) 0.02 K/uL RDW Standard Deviation 43.5 fL RDW Coefficient of Variation 11.9 % Immature Granulocyte % (Auto) 0.1 % Immature Granulocyte # (Auto) 0.01 K/uL Activated Partial Thromboplast Time 27.5 SECONDS Partial Thromboplastin Ratio 1.1 Sodium Level 141 mmol/L Potassium Level 4.0 mmol/L Chloride Level 108 mmol/L Carbon Dioxide Level 28 mmol/L Anion Gap 5.0 mmol/L Blood Urea Nitrogen 12 mg/dl Creatinine 0.76 mg/dl Est Creatinine Clear Calc Drug Dose 143.2 ml/min Estimated GFR () 120.7 Estimated GFR (Non- 104.2 BUN/Creatinine Ratio 15.8 Random Glucose 92 mg/dl Calcium Level 9.4 mg/dl Triglycerides Level 287 mg/dl Cholesterol Level 209 mg/dl HDL Cholesterol 33 mg/dl LDL Cholesterol, Calculated 119 mg/dl VLDL Cholesterol, Calculated 57 mg/dl Cholesterol/HDL Ratio 6.3 Assessment and Plan This is a 52 year old male with a PMH of tobacco use disorder presents with chest pain, elevated troponin - found to have severe CAD NSTEMI Severe CAD 05/15 s/p stent on 05/14 to the RCA aspirin, Plavix, statin amlodipine added due to elevated blood pressure 05/14 EKG showed mild T wave changes troponin elevated to ~ 2 s/p cardiac cath found to have a 99% RCA occlusion s/p RACHEL started on aspirin, Plavix, high intensity statin no b-aziza due to sinus bradycardia possibly may need to start an ALEXIS-I HTN added Norvasc can add ALEXIS-I if BP remains high Tobacco Use Disorder counseled patient on smoking cessation nicotine patch added as per patient preference will need nicotine 14mg patch on discharge DVT ppx subq heparin FULL CODE
[2017-05-16 03:35] VITALS: BP 126/82; PULSE 55; TEMP 36.8; O2SAT 97
[2017-05-16] MEDS: HEPARIN SOD 5000 UNIT/0.5 ML CARP SQ SCH (06:12)
[2017-05-16 07:00] LABS: BASO % 0.5 %; BASO ABS # 0.03 K/uL (0-0.2); COMPLETE YES; EOS % 2.9 %; HEMATOCRIT 48.4 % (42-52); IG% 0.2 %; LYMPH % 25.7 %; LYMPH ABS # 1.62 K/uL (1.2-3.4); MEAN CELL VOLUME 99.8 fL (80-100); MEAN CORPUSCULAR HEMOGLOBIN 34.4 pg (25-34); MEAN CORPUSCULAR HGB CONC 34.5 g/dl (32-36); MEAN PLATELET VOLUME 8.9 fL (7.4-10.4); NEUT % 58.7 %; PLATELET COUNT 254 K/uL (130-400); RED BLOOD COUNT 4.85 M/uL (4.7-6.1); WHITE BLOOD COUNT 6.31 K/uL (4.8-10.8)
[2017-05-16 07:07] LABS: PARTIAL THROMBOPLASTIN RATIO 1.1
[2017-05-16] MEDS: AMLODIPINE BESYLATE 5 MG TAB PO SCH (07:36)
[2017-05-16] MEDS: CLOPIDOGREL BISULFATE 75 MG TAB PO SCH (07:36)
[2017-05-16] MEDS: ASPIRIN 81 MG ECTAB PO SCH (07:36)
[2017-05-16] MEDS: ATORVASTATIN 40 MG TAB PO SCH (07:37)
[2017-05-16] MEDS: NICOTINE 14 MG/24 HR TDSY TD SCH (07:37)
[2017-05-16 07:47] VITALS: BP 145/91; PULSE 58; TEMP 36.4; O2SAT 96
[2017-05-16 10:37] VITALS: BP 141/91; PULSE 58; TEMP 36.4; O2SAT 96
[2017-05-16] MEDS ORDERED: LPT40 PO (13:07)
[2017-05-16] MEDS ORDERED: NRV5 PO (13:07)
[2017-05-16] MEDS ORDERED: PLV75 PO (13:07)
--- NOTE | 2017-05-16 13:11 | Discharge Instructions ---
Discharge Instructions Date of Service May 16, 2017. Admission Reason for Admission: Chest Pain,Elevated Troponin I Level Discharge Discharge Diagnosis / Problem: NON ST ELEVATED MA /CARDIAC STENT PLACEMENT IN RCA Discharge Goals Goal(s): Decrease discomfort, Improve disease control, Diagnostic testing, Therapeutic intervention Activity Recommendations Activity Limitations: resume your previous activity Shower/Bathe: no limitations HOSPITAL FOLLOWUP WITH FAMILY PHYSICIAN IN A WEEK PLEASE CALL [phone] TO SCHEDULE APPOINTMENT THROUGH [facility] NEED TO FOLLOW UP WITH CARDIOLOGY IN 1 MONTH , DR LORA OFFICE WILL CALL WITH APPOINTMENT . Instructions / Follow-Up Instructions / Follow-Up IT IS VERY IMPORTANT FOR YOU TO QUIT SMOKING TO PREVENT FUTURE HEART ATTACK Home Care: * Take your medications exactly as directed. Don't skip doses. * Remember that recovery after a heart attack takes time. Plan to rest for at lease 4-8 weeks while you recover. Then return to normal activity when your doctor says it's okay. * Ask your doctor about joining a heart rehabilitation program. * Tell your doctor if you are feeling depressed. Feelings of sadness are common after a heart attack, but it is important that you speak to someone if you are feeling overwhelmed by these feelings. * If you are having chest pain, call 911 for an ambulance. Do NOT drive yourself to the hospital. * Ask your family members to learn CPR. * Learn to take your own blood pressure and pulse. Keep a record of your results. Ask your doctor when you should seek emergency medical attention. He or she will tell you which blood pressure reading is dangerous. Lifestyle Changes: * Maintain a healthy weight. Get help to lose any extra pounds. * Cut back on salt. * Limit canned, dried, packaged, and fast foods. * Don't add salt to your food. * Season foods with herbs instead of salt when you cook. * Break the smoking habit. Enroll in a stop-smoking program to improve your chances of success. * Limit fatty foods. * Ask your doctor about having your lipid levels checked regularly. * Build up your activity according to your doctor's recommendation. * Ask your doctor when it's okay to resume sexual activity. * Tell your doctor about any erectile dysfunction (ED) medication you are taking. Some ED medications are not safe if you take certain heart medications. * Try to manage stress. Follow Up: It is important for you to keep your follow up appointments with your medical provider. Current Hospital Diet Patient's current hospital diet: AHA Diet (Heart Healthy) Discharge Diet Recommended Diet: AHA Diet (Heart Healthy) Pending Studies Studies pending at discharge: no Laboratory Results Lipid Panel Test 05/15/17 06:57 Range/Units Triglycerides Level 287 H 0-150 mg/dl Cholesterol Level 209 H 0-200 mg/dl HDL Cholesterol 33 mg/dl Cholesterol/HDL Ratio 6.3 LDL Cholesterol, Calculated 119 mg/dl Work Instructions Return To Work: 3 days Additional Instructions: MAY RETURN BACK TO WORK ON Saturday05/20/17 WITH RESTRICTED DUTY Medical Emergencies . Who to Call and When: Medical Emergencies: If at any time you feel your situation is an emergency, please call 911 immediately. Call 911 immediately or go to your nearest Emergency Room if you experience any of the following: Warning Signs and Symptoms of a Heart Attack * Chest pain that is not relieved by medication * Shortness of breath . Non-Emergent Contact Non-Emergency issues call your: Primary Care Provider . . "Provider Documentation" section prepared by Stephanie Garcia. . AMI Core Measures Reason no ASA as I/P: Treatment provided - N/A Reason no ASA at D/C: Treatment provided - N/A Reason no statin as I/P: Treatment provided - N/A Reason no statin at D/C: Treatment provided - N/A VTE Core Measure Inpt VTE Proph given/why not?: Unfractionated heparin SQ
--- NOTE | 2017-05-16 13:12 | Cardiology Follow-Up ---
Subjective Subjective Date of Service: May 16, 2017. Pt evaluation today including: conversation w/ patient, conversation w/ family , physical exam, chart review, lab review, review of studies, review of inpatient medication list Additional Details: Pt seen and examined, states that he feels fine, anxious for discharge. Denies cp, sob, palpitations, lightheadedness or dizziness. tele reviewed: sinus rhythm without arrhythmia or significant ectopy. Problem List Medical Problems: (1) Acute HI, inferior wall Status: Acute (2) NSTEMI (non-ST elevated myocardial infarction) Status: Acute Review of Systems Constitutional: No fever, No chills Respiratory: No cough, No sputum, No shortness of breath Cardiac: No chest pain, No edema, No palpitations Abdomen: No pain, No nausea, No vomiting, No diarrhea Heme: No abnormal bleeding/bruising Objective Vital Signs Last Vital Signs Documentation Date Time Temp Pulse Resp B/P (MAP) Pulse Ox O2 Delivery O2 Flow Rate FiO2 05/16/17 11:28 Room Air 05/16/17 10:37 36.4 58 18 96 05/16/17 07:47 145/91 (109) Physical Exam: General Appearance: WD/WN, no apparent distress, + obese Eyes: bilateral eyes normal inspection, bilateral eyes PERRL, bilateral eyes EOMI ENT: normal ENT inspection, hearing grossly normal, pharynx normal Neck: supple, no adenopathy, thyroid normal, no JVD, no carotid bruits, trachea midline Respiratory/Chest: chest non-tender, lungs clear, normal breath sounds, no respiratory distress, no accessory muscle use Cardiovascular: regular rate, rhythm, no edema, no murmur Abdomen: normal bowel sounds, non tender, soft Extremities: normal inspection, no pedal edema Neurologic/Psychiatric: no motor/sensory deficits, alert, normal mood/affect Skin: normal color, warm/dry, no rash Lymphatic: no adenopathy Assessment and Plan 1. NSTEMI 99% occluded proximal RCA s/p successful PCI with RACHEL tolerating asa and plavix well no recurrence of symptoms plavix for 1 year asa lifelong smoking cessation again stressed to the patient 2. HTN now controlled would d/c to home with amlodipine 5mg daily 3. dyslipidemia cont atorvastatin 4. tobacco abuse cessation counseling provided will also work with Dr. 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 Would be acceptable to return to work on Sunday 05/20 with restricted duty.
--- NOTE | 2017-05-16 13:16 | Progress Note ---
Internal Med Progress Note Date of Service: May 16, 2017. Provider Documentation: SUBJECTIVE: no complain of chest pain or SOB feel fine denies of RIDLEY evaluated by cardiology this Am stable to be discharged home OBJECTIVE: Vital Signs-as noted below Exam: General-no sign of distress Eyes-sclera non icteric ENT-NAD Neck-no JVD Lungs-CTA ,no wheeze or rales Heart-regular S1/S2 Abdomen-soft, non tender , no JVD , no lower ext edema Extremities-no rash or deformity Neuro-AAO x3, no focal neurological deficit Lab data as noted below. ASSESSMENT & PLAN: This is a 52 year old male with a PMH of tobacco use disorder presents with chest pain, elevated troponin - found to have severe CAD NSTEMI Severe CAD presented with chest pain EKG showed mild T wave changes troponin elevated to ~ 2 s/p cardiac cath on 05/14/17 found to have a 99% RCA occlusion s/p RACHEL stent placement recovering well no complain of chest pain or SOB pt is counselled for smoking cessation cont aspirin 81 mg for life long , Plavix( FOR 1 YEAR ) , pt is counselled importance of continuing dual antiplatelet therapy uninterrupted for 1 year to prevent stent stenosis High intensity statin Atorvastatin 80 mg daily ( goal LDL < 70 ) amlodipine added due to elevated blood pressure no b-aziza due to sinus bradycardia HTN added Norvasc may need ACEI in future if BP remains elevated not indicated at present due normal LV pressures noted in Cardiac cath Tobacco Use Disorder counseled patient on smoking cessation nicotine patch added as per patient preference nicotine 14mg patch on discharge DVT ppx subq heparin FULL CODE DISPOSITION discharge home today pt is asked to establish care with family physician -will call [facility] to schedule needs Cardiology follow up in 1 month Vital Signs: Date Time Temp Pulse Resp B/P (MAP) Pulse Ox O2 Delivery O2 Flow Rate FiO2 05/16/17 11:28 Room Air 05/16/17 10:37 36.4 58 18 96 Room Air 05/16/17 08:00 Room Air 05/16/17 07:47 36.4 58 18 145/91 (109) 96 Room Air 05/16/17 04:00 Room Air 05/16/17 03:35 36.8 55 18 126/82 (97) 97 Room Air 05/16/17 00:01 Room Air 05/15/17 23:25 36.7 67 18 123/80 (94) 97 Room Air 05/15/17 20:00 Room Air 05/15/17 19:42 36.8 60 18 144/78 (100) 96 Room Air 05/15/17 15:35 37.0 56 20 122/82 (95) 96 Room Air 05/15/17 14:53 Room Air Lab Results: Results Past 24 Hours Test 05/16/17 06:35 Range/Units White Blood Count 6.31 4.8-10.8 K/uL Red Blood Count 4.85 4.7-6.1 M/uL Hemoglobin 16.7 14.0-18.0 g/dL Hematocrit 48.4 42-52 % Mean Corpuscular Volume 99.8 80-100 fL Mean Corpuscular Hemoglobin 34.4 25-34 pg Mean Corpuscular Hemoglobin Concent 34.5 32-36 g/dl Platelet Count 254 130-400 K/uL Mean Platelet Volume 8.9 7.4-10.4 fL Neutrophils (%) (Auto) 58.7 % Lymphocytes (%) (Auto) 25.7 % Monocytes (%) (Auto) 12.0 % Eosinophils (%) (Auto) 2.9 % Basophils (%) (Auto) 0.5 % Neutrophils # (Auto) 3.71 1.4-6.5 K/uL Lymphocytes # (Auto) 1.62 1.2-3.4 K/uL Monocytes # (Auto) 0.76 0.11-0.59 K/uL Eosinophils # (Auto) 0.18 0-0.5 K/uL Basophils # (Auto) 0.03 0-0.2 K/uL RDW Standard Deviation 43.1 36.4-46.3 fL RDW Coefficient of Variation 11.8 11.5-14.5 % Immature Granulocyte % (Auto) 0.2 % Immature Granulocyte # (Auto) 0.01 0.00-0.02 K/uL Activated Partial Thromboplast Time 28.3 21.0-31.0 SECONDS Partial Thromboplastin Ratio 1.1
--- NOTE | 2017-05-16 13:27 | Discharge Summary ---
Discharge Summary Date of Service May 16, 2017. Discharge Summary Admission Date: May 14, 2017 at 13:48 Discharge Date: May 16, 2017 Discharge Disposition: Home Principal Diagnosis: NON ST ELEVATED MA /CARDIAC STENT PLACEMENT IN RCA Procedures: CARDIAC CATH WITH SUCCESSFUL PTCA WITH RACHEL AT RCA ON 05/14/17 Summary: 1. Severe single vessel coronary artery disease - 99% early-mid RCA stenosis with acute thrombus and pre-intervention BHARATHI 2 flow - Proximal to mid LAD and RCA and mid OM2 are ectatic with focal aneurysmal disease. 2. Normal intracardiac filling pressure 3. Successful PCI of mid RCA with single drug-eluting stent (4.0 x 18 Xience RACHEL , post-dilated to 4.5 mm). RESTING ECHO : * Normal LV chamber size with moderate concentric LVH. * Normal LV systolic function, EF 60-65%. * No segmental left ventricular wall motion abnormalities are noted. * Grade I diastolic dysfunction. * No significant valvular pathology. Consultations: [facility] INTERVENTIONAL CARDIOLOGY DR VERAS Medication Reconciliation New Medications: Amlodipine Besylate (Amlodipine Besylate) 5 Mg Tab 5 MG PO QAM for 30 Days, #30 TAB 3 Refills Atorvastatin (Atorvastatin Calcium) 40 Mg Tab 80 MG PO QAM for 30 Days, #60 TAB 3 Refills Clopidogrel Bisulfate (Clopidogrel) 75 Mg Tab 75 MG PO QAM for 30 Days, #30 TAB 3 Refills Continued Medications: Aspirin (Aspirin Ec) 81 Mg Tab 81 MG PO DAILY Multivitamin (Multivitamin) Tab 1 TAB PO DAILY, TAB Discontinued Medications: Sildenafil Citrate (Viagra) Unknown Strength Tab Unknown Dose PO PRN PRN for PRN, TAB Referrals At Discharge Follow up Referrals: Social Science Manager Referral - Within 6 Weeks with Praneeth Fan D.O. Admission Information HPI (per Admitting provider): This is a 52 year old male who smokes 1/2PPD but no other medical history presents with epigastric/lower chest pain since May 11. He states that he's had belching and burping episodes with this epigastric pain for weeks now; but the pain was worse starting over the weekend - states that after belching he felt slightly better, but then the pain worsened on the day of arrival and that was the reason to come to the ER. Presented to the ER due to worsening pain. Upon presentation - found to have some T wave changes on EKG, but no previous to compare it to. CXR was negative. Troponin elevation noted to ~ 2.0. Patient does have a family history, his dad had an MA in his 50s as well. Only takes a baby aspirin at home; no other medications. Noted to have elevated blood pressure on admission; but does not take anything for blood pressure. Physical Exam (per Admitting): General Appearance: no apparent distress Head: normocephalic, atraumatic Eyes: normal inspection ENT: hearing grossly normal Neck: supple Respiratory/Chest: chest non-tender, lungs clear, normal breath sounds, no respiratory distress, no accessory muscle use Cardiovascular: regular rate, rhythm, no edema, no gallop, no JVD, no murmur , normal peripheral pulses Abdomen/GI: normal bowel sounds, non tender, soft Extremities/Musculoskelatal: normal capillary refill, no pedal edema Neurologic/Psych: featherer II-XII nml as tested, no motor/sensory deficits, alert , normal mood/affect, normal reflexes, oriented x 3 Skin: normal color, warm/dry, no rash Lymphatic: no adenopathy Hospital Course This is a 52 year old male with a PMH of tobacco use disorder presents with chest pain, elevated troponin - found to have severe CAD NSTEMI Severe CAD presented with chest pain EKG showed mild T wave changes troponin elevated to ~ 2 s/p cardiac cath on 05/14/17 found to have a 99% RCA occlusion s/p RACHEL stent placement recovering well no complain of chest pain or SOB pt is counselled for smoking cessation cont aspirin 81 mg for life long , Plavix( FOR 1 YEAR ) , pt is counselled importance of continuing dual antiplatelet therapy uninterrupted for 1 year to prevent stent stenosis High intensity statin Atorvastatin 80 mg daily ( goal LDL < 70 ) amlodipine added due to elevated blood pressure no b-aziza due to sinus bradycardia HTN added Norvasc may need ACEI in future if BP remains elevated not indicated at present due normal LV pressures noted in Cardiac cath Tobacco Use Disorder counseled patient on smoking cessation nicotine patch added as per patient preference nicotine 14mg patch on discharge DVT ppx subq heparin FULL CODE DISPOSITION discharge home today pt is asked to establish care with family physician -will call [facility] to schedule needs Cardiology follow up in 1 month Total time spent on discharge = 40 MINS This includes examination of the patient, discharge planning, medication reconciliation, and communication with other providers. Discharge Instructions Discharge Instructions Date of Service May 16, 2017. Admission Reason for Admission: Chest Pain,Elevated Troponin I Level Discharge Discharge Diagnosis / Problem: NON ST ELEVATED MA /CARDIAC STENT PLACEMENT IN RCA Discharge Goals Goal(s): Decrease discomfort, Improve disease control, Diagnostic testing, Therapeutic intervention Activity Recommendations Activity Limitations: resume your previous activity Shower/Bathe: no limitations HOSPITAL FOLLOWUP WITH FAMILY PHYSICIAN IN A WEEK PLEASE CALL [phone] TO SCHEDULE APPOINTMENT THROUGH [facility] NEED TO FOLLOW UP WITH CARDIOLOGY IN 1 MONTH , DR FAN OFFICE WILL CALL WITH APPOINTMENT . Instructions / Follow-Up Instructions / Follow-Up IT IS VERY IMPORTANT FOR YOU TO QUIT SMOKING TO PREVENT FUTURE HEART ATTACK Home Care: * Take your medications exactly as directed. Don't skip doses. * Remember that recovery after a heart attack takes time. Plan to rest for at lease 4-8 weeks while you recover. Then return to normal activity when your doctor says it's okay. * Ask your doctor about joining a heart rehabilitation program. * Tell your doctor if you are feeling depressed. Feelings of sadness are common after a heart attack, but it is important that you speak to someone if you are feeling overwhelmed by these feelings. * If you are having chest pain, call 911 for an ambulance. Do NOT drive yourself to the hospital. * Ask your family members to learn CPR. * Learn to take your own blood pressure and pulse. Keep a record of your results. Ask your doctor when you should seek emergency medical attention. He or she will tell you which blood pressure reading is dangerous. Lifestyle Changes: * Maintain a healthy weight. Get help to lose any extra pounds. * Cut back on salt. * Limit canned, dried, packaged, and fast foods. * Don't add salt to your food. * Season foods with herbs instead of salt when you cook. * Break the smoking habit. Enroll in a stop-smoking program to improve your chances of success. * Limit fatty foods. * Ask your doctor about having your lipid levels checked regularly. * Build up your activity according to your doctor's recommendation. * Ask your doctor when it's okay to resume sexual activity. * Tell your doctor about any erectile dysfunction (ED) medication you are taking. Some ED medications are not safe if you take certain heart medications. * Try to manage stress. Follow Up: It is important for you to keep your follow up appointments with your medical provider. Current Hospital Diet Patient's current hospital diet: AHA Diet (Heart Healthy) Discharge Diet Recommended Diet: AHA Diet (Heart Healthy) Pending Studies Studies pending at discharge: no Laboratory Results Lipid Panel Test 05/15/17 06:57 Range/Units Triglycerides Level 287 H 0-150 mg/dl Cholesterol Level 209 H 0-200 mg/dl HDL Cholesterol 33 mg/dl Cholesterol/HDL Ratio 6.3 LDL Cholesterol, Calculated 119 mg/dl Work Instructions Return To Work: 3 days Additional Instructions: MAY RETURN BACK TO WORK ON Saturday05/20/17 WITH RESTRICTED DUTY Medical Emergencies . Who to Call and When: Medical Emergencies: If at any time you feel your situation is an emergency, please call 911 immediately. Call 911 immediately or go to your nearest Emergency Room if you experience any of the following: Warning Signs and Symptoms of a Heart Attack * Chest pain that is not relieved by medication * Shortness of breath . Non-Emergent Contact Non-Emergency issues call your: Primary Care Provider . . "Provider Documentation" section prepared by Stephanie Garcia. . AMI Core Measures Reason no ASA as I/P: Treatment provided - N/A Reason no ASA at D/C: Treatment provided - N/A Reason no statin as I/P: Treatment provided - N/A Reason no statin at D/C: Treatment provided - N/A VTE Core Measure Inpt VTE Proph given/why not?: Unfractionated heparin SQ Additional Copies To Praneeth Fan D.O.
== END 2017-05-16 14:12 | disposition home or self-care (01) | DRG 247 ==
LOC: C.EDB 06:36 → C.2T 09:01 → ENRESERV 09:55 → CANRESERV 09:55 → ENRESERV 12:02 → OBSVTOIN 13:48
PROVIDERS: ADMIT Family Medicine; ATTEND Hospitalist
PROC: 4A023N7 Measurement of Cardiac Sampling and Pressure, Left Heart, Percutaneous Approach (ICD-10-PCS; principal; 2017-05-14 10:48)
PROC: B2111ZZ Fluoroscopy of Multiple Coronary Arteries using Low Osmolar Contrast (ICD-10-PCS; principal; 2017-05-14 10:48)
PROC: 027034Z Dilation of Coronary Artery, One Artery with Drug-eluting Intraluminal Device, Percutaneous Approach (ICD-10-PCS; principal; 2017-05-14 10:48)
DX: I21.4 Non-ST elevation (NSTEMI) myocardial infarction (principal); F17.210 Nicotine dependence, cigarettes, uncomplicated; R07.9 Chest pain, unspecified; I25.10 Atherosclerotic heart disease of native coronary artery without angina pectoris; I10 Essential (primary) hypertension; E78.5 Hyperlipidemia, unspecified; Z68.30 Body mass index [BMI] 30.0-30.9, adult; Z82.49 Family history of ischemic heart disease and other diseases of the circulatory system; Z79.82 Long term (current) use of aspirin; Z79.899 Other long term (current) drug therapy

== ENCOUNTER → 2018-01-07 | Outpatient (CLI) | payer OTHER ==
[~2018-01-07] MED LIST: ASPI81TA28 PO; LPT40 PO; MULT-506 PO; NRV5 PO; PLV75 PO
[2018-01-07 09:35] LABS: HEMATOCRIT 45.6 % (42-52); HEMOGLOBIN 16.3 g/dL (14.0-18.0); MEAN CORPUSCULAR HEMOGLOBIN 35.7 pg (25-34); MEAN CORPUSCULAR HGB CONC 35.7 g/dl (32-36); MEAN PLATELET VOLUME 9.2 fL (7.4-10.4); PLATELET COUNT 255 K/uL (130-400); RED CELL DISTRIBUTION WIDTH CV 12.2 % (11.5-14.5); RED CELL DISTRIBUTION WIDTH SD 44.6 fL (36.4-46.3); WHITE BLOOD COUNT 6.29 K/uL (4.8-10.8)
[2018-01-07 09:46] LABS: BLOOD UREA NITROGEN 15 mg/dl (7-18); CALCIUM 9.3 mg/dl (8.5-10.1); CARBON DIOXIDE 28 mmol/L (21-32); GLUCOSE 99 mg/dl (70-99); POTASSIUM 4.1 mmol/L (3.5-5.1); SODIUM 140 mmol/L (136-145)
[2018-01-07 09:52] LABS: ALKALINE PHOSPHATASE 110 U/L (45-117); ALT/SGPT 49 U/L (12-78); AST/SGOT 23 U/L (15-37); CHOLESTEROL 146 mg/dl (0-200); LDL CHOLESTEROL CALCULATED 69 mg/dl; TOTAL PROTEIN 7.2 gm/dl (6.4-8.2)
== END | disposition home or self-care (01) ==
LOC: C.LAB1850 07:33
PROVIDERS: ATTEND Internal Medicine
DX: I10 Essential (primary) hypertension (principal); E78.5 Hyperlipidemia, unspecified; I25.10 Atherosclerotic heart disease of native coronary artery without angina pectoris